=== PATIENT | female | born 1965 | race Caucasian/White ===

== ENCOUNTER 2016-10-08 16:49 | Emergency (ER) | payer MEDICAID, OTHER ==
[~2016-10-08] VITALS: Ht 162.6 cm; Wt 70.8 kg
[~2016-10-08 16:49] MED LIST: ASPI-496 PO; FAMO-79 PO; NYST1000 PO; ONDA4TAB10 PO
[2016-10-08 16:55] VITALS: BP 152/89
[2016-10-08] MEDS ORDERED: IBUPROFEN 200 MG TABLET ONE (18:46)
[2016-10-08] MEDS ORDERED: IBUPROFEN 200 MG TABLET PO ONE (19:00)
== END 2016-10-08 18:43 | disposition home or self-care (01) ==
LOC: ED 18:37
DX: M77.9 Enthesopathy, unspecified (principal); Z91.013 Allergy to seafood; Z88.7 Allergy status to serum and vaccine; Z91.041 Radiographic dye allergy status
CPT/HCPCS: 29125

== ENCOUNTER 2017-10-21 15:36 | Inpatient (IN) | payer MEDICAID, OTHER ==
[~2017-10-21] VITALS: Ht 162.6 cm; Wt 67.0 kg
[2017-10-21] MEDS ORDERED: SODIUM CHLORIDE 0.9% 1,000ML IVBOLUS ONE (16:00)
[2017-10-21] MEDS ORDERED: SODIUM CHLORIDE FLUSH 10ML SYR IVF ONE (16:00)
[2017-10-21] MEDS ORDERED: THIAMINE 100MG TABLET PO ONE (16:00)
[2017-10-21] MEDS ORDERED: PANTOPRAZOLE 80 MG in SODIUM CHLORIDE 0.9% 50 ML IVPB ONE (16:19)
[2017-10-21] MEDS ORDERED: PANTOPRAZOLE 80 MG in SODIUM CHLORIDE 0.9% 100 ML IV SCH (16:19)
[2017-10-21] MEDS ORDERED: ASPI-650 PO (16:24)
[2017-10-21] MEDS ORDERED: NAPR220C2 PO (16:24)
[2017-10-21 16:25] LABS: BASOPHILS # (AUTO) 0.09 x10^3/uL (0-0.1); BASOPHILS % (AUTO) 1 % (0-1); EOSINOPHILS # (AUTO) 0.04 x10^3/uL (0-0.4); EOSINOPHILS % (AUTO) 0 % (1-7); LYMPHOCYTES # (AUTO) 2.07 x10^3/uL (1-3.4); LYMPHOCYTES % (AUTO) 20 % (22-44); MD NO; MEAN CORPUSCULAR HEMOGLOBIN 35.2 pg (27.0-34.8); MEAN CORPUSCULAR HGB CONC 34.5 g/dL (32.4-35.8); MEAN CORPUSCULAR VOLUME 102.1 fL (80-100); MEAN PLATELET VOLUME 7.2 fL (7.4-10.4); MONOCYTES # (AUTO) 0.56 x10^3/uL (0.2-0.8); MONOCYTES % (AUTO) 5 % (2-9); NEUTROPHILS # (AUTO) 7.67 x10^3/uL (1.8-6.8); NEUTROPHILS % (AUTO) 74 % (42-75); PLATELET COUNT 369 x10^3/uL (130-400); RED BLOOD COUNT 4.35 x10^6/uL (3.82-5.3); RED CELL DISTRIBUTION WIDTH 12.1 % (9.6-15.2)
[2017-10-21] MEDS ORDERED: THIAMINE 100MG TABLET ONE (16:26)
[2017-10-21] MEDS ORDERED: LORazepam 2 MG/ML, 1ML ONE (16:28)
[2017-10-21] MEDS: LORazepam 2 MG/ML, 1ML IVPush PRN ×2 (16:32→19:15)
[2017-10-21 16:35] LABS: ALANINE AMINOTRANSFERASE 66 U/L (12-78); ALBUMIN 3.6 g/dL (3.4-5.0); ANION GAP 7 mmol/L (5-15); CALCIUM 8.5 mg/dL (8.5-10.1); CHLORIDE 104 mmol/L (98-107); CREATININE 0.53 mg/dL (0.55-1.02)
[2017-10-21 16:37] LABS: ALKALINE PHOSPHATASE 117 U/L (45-117); BILIRUBIN,TOTAL 0.4 mg/dL (0.2-1.0); TOTAL PROTEIN 8.3 g/dL (6.4-8.2)
[2017-10-21 16:51] LABS: INTERNATIONAL NORMALIZED RATIO 0.99 (0.93-1.1); PROTHROMBIN TIME 10.2 Seconds (9.6-11.5)
[2017-10-21 16:59] LABS: TROPONIN I < 0.015 ng/mL (0.000-0.045)
[2017-10-21] MEDS ORDERED: GABAPENTIN 300 MG CAPSULE PO PRN (18:00)
[2017-10-21] MEDS ORDERED: LORazepam 1MG TABLET PO PRN ×3 (18:00)
[2017-10-21] MEDS: LIDODERM 5% PATCH TD SCH ×2 (18:00→22:51)
[2017-10-21] MEDS: NICOTINE 7 MG/24 HR PATCH.TD24 TD SCH (18:00)
[2017-10-21] MEDS ORDERED: ONDANSETRON 2MG/ML, 2ML IV PRN (18:00)
[2017-10-21] MEDS ORDERED: ALUMINUM/MAG/SIMETHICONE 30 ML UDC PO PRN (18:00)
[2017-10-21] MEDS ORDERED: LORazepam 2 MG/ML, 1ML IV PRN ×4 (18:00)
[2017-10-21] MEDS ORDERED: ACETAMINOPHEN 325 MG TABLET PO PRN (18:00)
[2017-10-21] MEDS ORDERED: DOCUSATE 100 MG CAPSULE PO PRN (18:00)
[2017-10-21 18:36] LABS: FOLATE LEVEL 8.4 ng/mL (3.1-17.5); THYROID STIMULATING HORMONE 3.31 mIU/L (0.358-3.740)
[2017-10-21 19:03] VITALS: BP 154/89
[2017-10-21] MEDS: PANTOPRAZOLE 80 MG in SODIUM CHLORIDE 0.9% 100 ML IV SCH (19:16)
[2017-10-21 19:37] VITALS: BP 144/83
[2017-10-21] MEDS: CHLORDIAZEPOXIDE 10 MG CAPSULE PO SCH ×2 (20:24→22:46)
[2017-10-21] MEDS: POTASSIUM CHLORIDE 20 MEQ, MAGNESIUM SULFATE 1 GM, FOLIC ACID 1 MG, THIAMINE 100 MG, MV... IV SCH (21:20)
[2017-10-21] MEDS: SODIUM CHLORIDE 0.9% 1,000 ML IV SCH (21:21)
[2017-10-21 21:25] LABS: MICROSCOPIC NOT IND
[2017-10-21 21:32] LABS: CULTURE INDICATED? NO
[2017-10-21 21:47] LABS: AMPHETAMINE SCREEN, URINE Negative (Negative); BARBITURATE SCREEN, URINE Negative (Negative); BENZODIAZEPINE SCREEN, URINE Negative (Negative); CANNABINOID SCREEN, URINE Positive (Negative); COCAINE SCREEN, URINE Negative (Negative); METHADONE SCREEN, URINE Negative (Negative); OPIATE SCREEN, URINE Negative (Negative)
[2017-10-22 00:13] VITALS: BP 143/84
[2017-10-22] MEDS: PANTOPRAZOLE 80 MG in SODIUM CHLORIDE 0.9% 100 ML IV SCH ×2 (03:41→17:08)
[2017-10-22] MEDS: CHLORDIAZEPOXIDE 10 MG CAPSULE PO SCH ×2 (06:28→12:31)
[2017-10-22 06:30] LABS: BASOPHILS # (AUTO) 0.07 x10^3/uL (0-0.1); BASOPHILS % (AUTO) 1 % (0-1); EOSINOPHILS # (AUTO) 0.14 x10^3/uL (0-0.4); EOSINOPHILS % (AUTO) 2 % (1-7); LYMPHOCYTES # (AUTO) 1.87 x10^3/uL (1-3.4); LYMPHOCYTES % (AUTO) 27 % (22-44); MD NO; MEAN CORPUSCULAR HGB CONC 34.7 g/dL (32.4-35.8); MEAN CORPUSCULAR VOLUME 100.6 fL (80-100); MEAN PLATELET VOLUME 7.3 fL (7.4-10.4); MONOCYTES # (AUTO) 0.49 x10^3/uL (0.2-0.8); MONOCYTES % (AUTO) 7 % (2-9); NEUTROPHILS % (AUTO) 63 % (42-75); PLATELET COUNT 328 x10^3/uL (130-400); RED CELL DISTRIBUTION WIDTH 12.3 % (9.6-15.2)
[2017-10-22 06:38] LABS: ALBUMIN 2.9 g/dL (3.4-5.0); ANION GAP 6 mmol/L (5-15); CALCIUM 8.1 mg/dL (8.5-10.1); CHLORIDE 107 mmol/L (98-107)
[2017-10-22 06:41] LABS: ALANINE AMINOTRANSFERASE 52 U/L (12-78); ALKALINE PHOSPHATASE 103 U/L (45-117); BILIRUBIN,TOTAL 1.2 mg/dL (0.2-1.0); CREATININE 0.46 mg/dL (0.55-1.02); TOTAL PROTEIN 6.9 g/dL (6.4-8.2)
[2017-10-22 07:00] VITALS: BP 152/84
[2017-10-22] MEDS ORDERED: LABETALOL 5MG/ML, 20ML IVPush PRN (11:00)
[2017-10-22] MEDS: SODIUM CHLORIDE 0.9% 1,000 ML IV SCH (12:21)
[2017-10-22] MEDS: LORazepam 0.5MG TABLET PO PRN ×2 (12:31→17:08)
[2017-10-22] MEDS: LACTULOSE 20 GM/30 ML UDC PO SCH ×2 (12:31→20:48)
[2017-10-22 15:01] VITALS: BP 115/53
[2017-10-22] MEDS: NICOTINE 7 MG/24 HR PATCH.TD24 TD SCH (17:09)
[2017-10-22 18:51] VITALS: BP 135/88
[2017-10-22] MEDS: POTASSIUM CHLORIDE 20 MEQ, MAGNESIUM SULFATE 1 GM, FOLIC ACID 1 MG, THIAMINE 100 MG, MV... IV SCH (20:48)
[2017-10-23 02:00] VITALS: BP 134/87
[2017-10-23] MEDS: PANTOPRAZOLE 80 MG in SODIUM CHLORIDE 0.9% 100 ML IV SCH (03:25)
[2017-10-23 06:23] LABS: BASOPHILS # (AUTO) 0.05 x10^3/uL (0-0.1); BASOPHILS % (AUTO) 1 % (0-1); EOSINOPHILS # (AUTO) 0.16 x10^3/uL (0-0.4); EOSINOPHILS % (AUTO) 3 % (1-7); LYMPHOCYTES # (AUTO) 1.83 x10^3/uL (1-3.4); LYMPHOCYTES % (AUTO) 29 % (22-44); MD NO; MEAN CORPUSCULAR HEMOGLOBIN 35.1 pg (27.0-34.8); MEAN CORPUSCULAR HGB CONC 34.5 g/dL (32.4-35.8); MEAN CORPUSCULAR VOLUME 101.7 fL (80-100); MEAN PLATELET VOLUME 7.4 fL (7.4-10.4); MONOCYTES # (AUTO) 0.45 x10^3/uL (0.2-0.8); MONOCYTES % (AUTO) 7 % (2-9); NEUTROPHILS # (AUTO) 3.85 x10^3/uL (1.8-6.8); NEUTROPHILS % (AUTO) 61 % (42-75); PLATELET COUNT 334 x10^3/uL (130-400); RED BLOOD COUNT 4.06 x10^6/uL (3.82-5.3); RED CELL DISTRIBUTION WIDTH 12.2 % (9.6-15.2)
[2017-10-23 06:33] LABS: ALANINE AMINOTRANSFERASE 68 U/L (12-78); ALBUMIN 2.9 g/dL (3.4-5.0); ANION GAP 6 mmol/L (5-15); CHLORIDE 109 mmol/L (98-107); CREATININE 0.58 mg/dL (0.55-1.02)
[2017-10-23 06:36] LABS: ALKALINE PHOSPHATASE 100 U/L (45-117); BILIRUBIN,TOTAL 0.8 mg/dL (0.2-1.0); TOTAL PROTEIN 6.9 g/dL (6.4-8.2)
[2017-10-23] MEDS: LACTULOSE 20 GM/30 ML UDC PO SCH (07:46)
[2017-10-23 08:01] VITALS: BP 136/84
[2017-10-23 09:29] LABS: OCCULT BLOOD NEGATIVE (NEGATIVE)
[2017-10-23] MEDS: LIDODERM 5% PATCH TD SCH (11:58)
== END 2017-10-23 12:51 | disposition home or self-care (01) | DRG 896 ==
LOC: ED 17:05 → EDIP 17:11 → 4WST 18:58
PROVIDERS: ADMIT Hospitalist; ATTEND Hospitalist
DX: F10.239 Alcohol dependence with withdrawal, unspecified (principal); K29.21 Alcoholic gastritis with bleeding; R29.6 Repeated falls; S09.90XA Unspecified injury of head, initial encounter; W18.30XA Fall on same level, unspecified, initial encounter; B18.2 Chronic viral hepatitis C; F12.10 Cannabis abuse, uncomplicated; Y93.01 Activity, walking, marching and hiking; M85.80 Other specified disorders of bone density and structure, unspecified site; F17.210 Nicotine dependence, cigarettes, uncomplicated; D75.89 Other specified diseases of blood and blood-forming organs; D72.829 Elevated white blood cell count, unspecified; E87.6 Hypokalemia; Y90.9 Presence of alcohol in blood, level not specified; M54.30 Sciatica, unspecified side; E86.0 Dehydration; I10 Essential (primary) hypertension; Y92.89 Other specified places as the place of occurrence of the external cause; Y99.2 Volunteer activity; Z88.7 Allergy status to serum and vaccine; Z91.041 Radiographic dye allergy status; Z91.013 Allergy to seafood; Z79.82 Long term (current) use of aspirin
CPT/HCPCS: 36415; 72220; 73020; 99285; J7042; 70450; 70486; 72125; 76700; 80053; 80307; 81003; 82140; 82272; 82607; 82746; 83690; 83735; 84100; 84443; 84484; 85014; 85018; 85025; 85610; 93005; 96365; J3411; J3475; J3480; C9113; J2060; J7030

== ENCOUNTER 2018-09-24 12:25 | Emergency (ER) | payer MEDICAID ==
[~2018-09-24] VITALS: Ht 162.6 cm; Wt 64.4 kg
[2018-09-24 15:44] VITALS: BP 120/84
== END 2018-09-24 16:31 | disposition home or self-care (01) ==
LOC: ED 13:59
DX: K29.20 Alcoholic gastritis without bleeding (principal); F10.10 Alcohol abuse, uncomplicated; N10 Acute pyelonephritis; F17.200 Nicotine dependence, unspecified, uncomplicated; R05 Cough
CPT/HCPCS: 36415; 71045; 74177; 80053; 80307; 81001; 83690; 85025; 85610; 86850; 86900; 87077; 87086; 93005; 96361; 96365; 96375; 99284; C9113; J0696; J2405; J7030; Q9967; 87186

== ENCOUNTER 2019-03-12 06:59 | Inpatient (IN) | payer MEDICAID, OTHER ==
[~2019-03-12] VITALS: Ht 162.6 cm; Wt 68.7 kg
[~2019-03-12 06:59] MED LIST changes: +ASPI-650 PO; +NAPR220C2 PO
--- NOTE | 2019-03-12 07:29 | NUR ---
UM NURSE: PT AMBULATORY TO ROOM FROM LOBBY
[2019-03-12 07:55] LABS: MEAN CORPUSCULAR HEMOGLOBIN 33.8 pg (27.0-34.8); MEAN CORPUSCULAR HGB CONC 33.5 g/dL (32.4-35.8); MEAN CORPUSCULAR VOLUME 100.9 fL (80-100); MEAN PLATELET VOLUME 7.6 fL (7.4-10.4); PLATELET COUNT 309 x10^3/uL (130-400); RED BLOOD COUNT 4.23 x10^6/uL (3.82-5.3)
[2019-03-12] MEDS ORDERED: SODIUM CHLORIDE 0.9% 1,000ML IVBOLUS ONE (08:00)
[2019-03-12] MEDS ORDERED: KETOROLAC 30 MG/1 ML IVPush ONE (08:00)
[2019-03-12] MEDS ORDERED: ACETAMINOPHEN 500 MG TABLET PO ONE (08:00)
[2019-03-12] MEDS ORDERED: SODIUM CHLORIDE FLUSH 10ML SYR IVF ONE (08:00)
[2019-03-12] MEDS ORDERED: KETOROLAC 30 MG/1 ML ONE (08:03)
[2019-03-12] MEDS ORDERED: ACETAMINOPHEN 500 MG TABLET ONE (08:03)
[2019-03-12 08:09] LABS: ALANINE AMINOTRANSFERASE 25 U/L (12-78); ALBUMIN 2.7 g/dL (3.4-5.0); ANION GAP 12 mmol/L (5-15); CALCIUM 8.4 mg/dL (8.5-10.1); CHLORIDE 102 mmol/L (98-107); CREATININE 0.67 mg/dL (0.55-1.02)
[2019-03-12 08:11] LABS: ALKALINE PHOSPHATASE 198 U/L (45-117); BILIRUBIN,TOTAL 0.8 mg/dL (0.2-1.0); TOTAL PROTEIN 7.3 g/dL (6.4-8.2)
[2019-03-12 08:32] LABS: MD YES
[2019-03-12 08:34] LABS: BAND#(MANUAL) 4.03 x10^3/uL; BANDS%(MANUAL) 18 % (0-7); LYMPH#(MANUAL) 0.45 x10^3/uL (1-3.4); LYMPHS% (MANUAL) 2 % (22-44); SEG#(MANUAL) 17.92 x10^3/uL (1.8-6.8); SEGS% (MANUAL) 80 % (42-75); TOXIC GRAN 1+
[2019-03-12 08:35] LABS: <PLATELET ESTIMATE> ADEQUATE; <PLT MORPHOLOGY> NORMAL PLT MORPH; PMNS WITH VACUOLES 1+
[2019-03-12] MEDS ORDERED: CHLORDIAZEPOXIDE 10 MG CAPSULE PO PRN (09:00)
[2019-03-12] MEDS ORDERED: POTASSIUM CHLORIDE 40 MEQ in SODIUM CHLORIDE 0.9% 500 ML IV ONE ×2 (09:00→09:30)
[2019-03-12] MEDS ORDERED: AZITHROMYCIN 500 MG in SODIUM CHLORIDE 0.9% 250 ML IV ONE ×2 (09:00→13:30)
[2019-03-12] MEDS ORDERED: CEFTRIAXONE PMX 1GM/50ML 50 ML IV ONE (09:00)
[2019-03-12] MEDS ORDERED: LABETALOL 5MG/ML, 20ML IVPush PRN (09:30)
[2019-03-12] MEDS ORDERED: PROMETHAZINE 25 MG/ML, 1ML IM PRN (09:30)
[2019-03-12] MEDS ORDERED: LORazepam 1MG TABLET PO PRN ×2 (09:30)
[2019-03-12] MEDS ORDERED: CEFTRIAXONE PMX 1GM/50ML 50 ML IV SCH (09:30)
[2019-03-12] MEDS ORDERED: hydrALAzine 20 MG/ML, 1ML IVPush PRN (09:30)
[2019-03-12] MEDS ORDERED: ONDANSETRON 2MG/ML, 2ML IVPush PRN (09:30)
[2019-03-12] MEDS ORDERED: LORazepam 0.5MG TABLET PO PRN (09:30)
[2019-03-12] MEDS: NICOTINE 14MG/24 HR PATCH.TD24 TD SCH (09:30)
[2019-03-12] MEDS ORDERED: morphine SULFATE 10 MG/ML, 1ML IVPush PRN (09:30)
[2019-03-12] MEDS ORDERED: THIAMINE 100MG TABLET PO SCH (09:30)
[2019-03-12] MEDS ORDERED: HYDROcodone/APAP 5/325 TABLET PO PRN (09:30)
[2019-03-12] MEDS ORDERED: DOXYCYCLINE 100MG TABLET PO SCH (09:30)
[2019-03-12] MEDS ORDERED: LORazepam 2 MG/ML, 1ML IV PRN ×3 (09:30)
[2019-03-12] MEDS ORDERED: CEFTRIAXONE PMX 1GM/50ML 50 ML ONE (09:31)
[2019-03-12 09:39] LABS: MICROSCOPIC INDICATED
[2019-03-12 09:53] LABS: CULTURE INDICATED? YES
[2019-03-12] MEDS: SODIUM CHLORIDE 0.9% 1,000 ML IV SCH ×2 (09:57→18:29)
--- NOTE | 2019-03-12 10:23 | NUR ---
REPORT GIVEN TO HARVEY CHILD
[2019-03-12] MEDS: HEPARIN 5,000 UNITS/ML, 1ML SQ SCH ×2 (11:22→20:48)
[2019-03-12] MEDS: FOLIC ACID 1 MG TABLET PO SCH (11:22)
[2019-03-12] MEDS: MULTIVITAMIN 1 TABLET PO SCH (11:23)
[2019-03-12 11:27] VITALS: BP 101/75
[2019-03-12 11:36] LABS: RAPID INFLUENZA A Negative (Negative); RAPID INFLUENZA B Negative (Negative)
[2019-03-12 12:15] LABS: HCG UR SG 1.005 (1.003-1.030); MICROSCOPIC NOT IND
[2019-03-12 12:18] LABS: CULTURE INDICATED? NO
[2019-03-12] MEDS: SODIUM CHLORIDE 0.9% 500 ML IV SCH ×4 (12:22→15:38)
[2019-03-12 12:27] LABS: AMPHETAMINE SCREEN, URINE Positive (Negative); BARBITURATE SCREEN, URINE Negative (Negative); BENZODIAZEPINE SCREEN, URINE Negative (Negative); CANNABINOID SCREEN, URINE Positive (Negative); COCAINE SCREEN, URINE Negative (Negative); METHADONE SCREEN, URINE Negative (Negative); OPIATE SCREEN, URINE Negative (Negative)
[2019-03-12] MEDS: LORazepam 2 MG/ML, 1ML IV PRN (13:07)
[2019-03-12] MEDS ORDERED: AZITHROMYCIN 500 MG in SODIUM CHLORIDE 0.9% 250 ML IV SCH (14:00)
[2019-03-12 14:13] VITALS: BP 99/60
[2019-03-12] MEDS: POTASSIUM CHLORIDE 20 MEQ TAB.ER.PRT PO SCH (17:10)
[2019-03-12 19:06] VITALS: BP 91/62
[2019-03-12 19:40] VITALS: BP 101/72
[2019-03-12 19:52] LABS: ANION GAP 8 mmol/L (5-15); CALCIUM 7.5 mg/dL (8.5-10.1); CHLORIDE 113 mmol/L (98-107); CREATININE 0.65 mg/dL (0.55-1.02)
[2019-03-13 01:15] VITALS: BP 99/64
[2019-03-13] MEDS: SODIUM CHLORIDE 0.9% 1,000 ML IV SCH ×2 (05:35→20:26)
[2019-03-13] MEDS: HEPARIN 5,000 UNITS/ML, 1ML SQ SCH ×3 (05:35→20:04)
[2019-03-13 05:53] LABS: CHLORIDE 114 mmol/L (98-107)
[2019-03-13 05:54] LABS: MEAN CORPUSCULAR HGB CONC 33.5 g/dL (32.4-35.8); MEAN CORPUSCULAR VOLUME 101.4 fL (80-100); MEAN PLATELET VOLUME 8.1 fL (7.4-10.4); PLATELET COUNT 286 x10^3/uL (130-400); RED BLOOD COUNT 3.52 x10^6/uL (3.82-5.3); RED CELL DISTRIBUTION WIDTH 12.7 % (9.6-15.2)
[2019-03-13 06:13] LABS: ALANINE AMINOTRANSFERASE 22 U/L (12-78); ALBUMIN 1.9 g/dL (3.4-5.0); ALKALINE PHOSPHATASE 165 U/L (45-117); ANION GAP 9 mmol/L (5-15); BILIRUBIN,TOTAL 0.3 mg/dL (0.2-1.0); CALCIUM 7.6 mg/dL (8.5-10.1); TOTAL PROTEIN 5.8 g/dL (6.4-8.2)
[2019-03-13 06:46] VITALS: BP 96/63
[2019-03-13 06:49] LABS: MD YES
[2019-03-13 06:54] LABS: <PLATELET ESTIMATE> ADEQUATE; <PLT MORPHOLOGY> NORMAL PLT MORPH; BAND#(MANUAL) 1.46 x10^3/uL; BANDS%(MANUAL) 8 % (0-7); BASOS#(MANUAL) 0.18 x10^3/uL (0-0.1); BASOS% (MANUAL) 1 % (0-1); LYMPH#(MANUAL) 4.37 x10^3/uL (1-3.4); LYMPHS% (MANUAL) 24 % (22-44); MONOS#(MANUAL) 0.55 x10^3/uL (0.3-2.7); MONOS% (MANUAL) 3 % (2-9); SEG#(MANUAL) 11.65 x10^3/uL (1.8-6.8); SEGS% (MANUAL) 64 % (42-75)
[2019-03-13 06:55] LABS: POLYCHROMASIA 1+
[2019-03-13] MEDS ORDERED: CEFTRIAXONE PMX 1GM/50ML 50 ML IV SCH (09:00)
[2019-03-13] MEDS ORDERED: VANCOMYCIN PER PHARMACY MC PRN (09:30)
[2019-03-13] MEDS: MULTIVITAMIN 1 TABLET PO SCH (09:44)
[2019-03-13] MEDS: POTASSIUM CHLORIDE 20 MEQ TAB.ER.PRT PO SCH ×2 (09:44→16:08)
[2019-03-13] MEDS: NICOTINE 14MG/24 HR PATCH.TD24 TD SCH (09:45)
[2019-03-13] MEDS: FOLIC ACID 1 MG TABLET PO SCH (09:45)
[2019-03-13] MEDS ORDERED: THIAMINE 100 MG in SODIUM CHLORIDE 0.9% 50 ML IV SCH (10:00)
[2019-03-13] MEDS ORDERED: PHARMACOKINETIC MONITORING MC PRN (10:30)
[2019-03-13] MEDS ORDERED: PHARMACOKINETIC CONSULTATION MC ONE (10:30)
[2019-03-13] MEDS: VANCOMYCIN 1,400 MG in SODIUM CHLORIDE 0.9% 250 ML IV SCH ×2 (10:50→22:49)
[2019-03-13 11:49] VITALS: BP 111/68
[2019-03-13] MEDS ORDERED: AZITHROMYCIN 500 MG in SODIUM CHLORIDE 0.9% 250 ML IV SCH (12:00)
[2019-03-13] MEDS: GUAIFENESIN 200 MG TABLET PO SCH ×3 (12:26→20:03)
[2019-03-13] MEDS ORDERED: POTASSIUM PHOSPHATE 44 MEQ in SODIUM CHLORIDE 0.9% 500 ML IV ONE (15:00)
[2019-03-13 19:26] VITALS: BP 146/92
[2019-03-13] MEDS: ACETAMINOPHEN 325 MG TABLET PO PRN (20:03)
[2019-03-13] MEDS: LORazepam 2 MG/ML, 1ML IV PRN (20:04)
[2019-03-14 00:48] VITALS: BP 127/81
[2019-03-14] MEDS: SODIUM CHLORIDE 0.9% 1,000 ML IV SCH ×2 (05:33→21:14)
[2019-03-14] MEDS: HEPARIN 5,000 UNITS/ML, 1ML SQ SCH ×3 (05:33→21:13)
[2019-03-14] MEDS: GUAIFENESIN 200 MG TABLET PO SCH ×4 (05:33→20:56)
[2019-03-14 06:59] VITALS: BP 129/84
[2019-03-14] MEDS ORDERED: THIAMINE 100MG TABLET JT SCH (09:00)
[2019-03-14 09:30] LABS: BASOPHILS # (AUTO) 0.05 x10^3/uL (0-0.1); BASOPHILS % (AUTO) 1 % (0-1); EOSINOPHILS % (AUTO) 1 % (1-7); LYMPHOCYTES # (AUTO) 1.79 x10^3/uL (1-3.4); LYMPHOCYTES % (AUTO) 21 % (22-44); MD NO; MEAN CORPUSCULAR HGB CONC 33.8 g/dL (32.4-35.8); MEAN CORPUSCULAR VOLUME 100.4 fL (80-100); MEAN PLATELET VOLUME 7.7 fL (7.4-10.4); MONOCYTES # (AUTO) 0.45 x10^3/uL (0.2-0.8); MONOCYTES % (AUTO) 5 % (2-9); NEUTROPHILS # (AUTO) 5.95 x10^3/uL (1.8-6.8); NEUTROPHILS % (AUTO) 71 % (42-75); PLATELET COUNT 359 x10^3/uL (130-400); RED BLOOD COUNT 3.95 x10^6/uL (3.82-5.3); RED CELL DISTRIBUTION WIDTH 12.7 % (9.6-15.2)
[2019-03-14 09:37] LABS: ALBUMIN 2.2 g/dL (3.4-5.0); ANION GAP 5 mmol/L (5-15); CALCIUM 8.1 mg/dL (8.5-10.1); CHLORIDE 110 mmol/L (98-107)
[2019-03-14 09:40] LABS: ALANINE AMINOTRANSFERASE 39 U/L (12-78); ALKALINE PHOSPHATASE 166 U/L (45-117); BILIRUBIN,TOTAL 0.4 mg/dL (0.2-1.0); CREATININE 0.51 mg/dL (0.55-1.02); TOTAL PROTEIN 6.2 g/dL (6.4-8.2)
[2019-03-14] MEDS: VANCOMYCIN 1,400 MG in SODIUM CHLORIDE 0.9% 250 ML IV SCH ×2 (10:21→22:51)
[2019-03-14] MEDS: POTASSIUM CHLORIDE 20 MEQ TAB.ER.PRT PO SCH ×2 (10:22→17:04)
[2019-03-14] MEDS: NICOTINE 14MG/24 HR PATCH.TD24 TD SCH (10:22)
[2019-03-14] MEDS: FOLIC ACID 1 MG TABLET PO SCH (10:22)
[2019-03-14] MEDS: MULTIVITAMIN 1 TABLET PO SCH (10:22)
[2019-03-14 12:59] VITALS: BP 137/88
[2019-03-14] MEDS: LORazepam 1MG TABLET PO PRN ×2 (13:26→20:56)
[2019-03-14 19:20] VITALS: BP 147/85
[2019-03-14] MEDS ORDERED: ATORVASTATIN 40 MG TABLET PO SCH (21:00)
[2019-03-14] MEDS ORDERED: CARVEDILOL 25 MG TABLET PO SCH (21:00)
[2019-03-14] MEDS ORDERED: OMEPRAZOLE 20 MG CAPSULE.DR PO SCH (21:00)
[2019-03-15 02:12] VITALS: BP 137/94
[2019-03-15 05:43] LABS: BASOPHILS # (AUTO) 0.05 x10^3/uL (0-0.1); BASOPHILS % (AUTO) 1 % (0-1); EOSINOPHILS # (AUTO) 0.15 x10^3/uL (0-0.4); EOSINOPHILS % (AUTO) 2 % (1-7); LYMPHOCYTES # (AUTO) 2.33 x10^3/uL (1-3.4); LYMPHOCYTES % (AUTO) 30 % (22-44); MD NO; MEAN CORPUSCULAR HEMOGLOBIN 33.5 pg (27.0-34.8); MEAN CORPUSCULAR HGB CONC 33.6 g/dL (32.4-35.8); MEAN CORPUSCULAR VOLUME 99.7 fL (80-100); MONOCYTES # (AUTO) 0.82 x10^3/uL (0.2-0.8); MONOCYTES % (AUTO) 11 % (2-9); NEUTROPHILS # (AUTO) 4.33 x10^3/uL (1.8-6.8); NEUTROPHILS % (AUTO) 56 % (42-75); PLATELET COUNT 365 x10^3/uL (130-400); RED BLOOD COUNT 4.01 x10^6/uL (3.82-5.3); RED CELL DISTRIBUTION WIDTH 12.3 % (9.6-15.2)
[2019-03-15 05:48] LABS: ALBUMIN 2.2 g/dL (3.4-5.0); ANION GAP 6 mmol/L (5-15); CALCIUM 8.8 mg/dL (8.5-10.1); CHLORIDE 106 mmol/L (98-107)
[2019-03-15 05:54] LABS: ALANINE AMINOTRANSFERASE 52 U/L (12-78); ALKALINE PHOSPHATASE 162 U/L (45-117); BILIRUBIN,TOTAL 0.5 mg/dL (0.2-1.0); CREATININE 0.48 mg/dL (0.55-1.02); TOTAL PROTEIN 6.6 g/dL (6.4-8.2)
[2019-03-15] MEDS: GUAIFENESIN 200 MG TABLET PO SCH ×2 (06:20→12:30)
[2019-03-15] MEDS: SODIUM CHLORIDE 0.9% 1,000 ML IV SCH (06:21)
[2019-03-15] MEDS: HEPARIN 5,000 UNITS/ML, 1ML SQ SCH ×2 (06:21→12:29)
[2019-03-15 07:38] VITALS: BP 136/97
[2019-03-15] MEDS ORDERED: SEVELAMER CARBONATE 800MG TAB PO SCH (08:00)
[2019-03-15] MEDS: MULTIVITAMIN 1 TABLET PO SCH (08:57)
[2019-03-15] MEDS: FOLIC ACID 1 MG TABLET PO SCH (08:57)
[2019-03-15] MEDS ORDERED: THIAMINE 100MG TABLET PO SCH (09:00)
[2019-03-15] MEDS: NICOTINE 14MG/24 HR PATCH.TD24 TD SCH (09:11)
[2019-03-15] MEDS ORDERED: CEFTRIAXONE PMX 2GM/50ML 50 ML IV SCH (09:30)
[2019-03-15] MEDS: ACETAMINOPHEN 325 MG TABLET PO PRN (12:30)
[2019-03-15 12:35] VITALS: BP 138/96
[2019-03-15] MEDS ORDERED: THIA100T67 PO (14:15)
[2019-03-15] MEDS ORDERED: GUAI200T37 PO (14:15)
[2019-03-15] MEDS ORDERED: LEVO500T47 PO (14:15)
[2019-03-15] MEDS ORDERED: FOLI-17 PO (14:15)
== END 2019-03-15 15:19 | disposition home or self-care (01) | DRG 871 ==
LOC: ED 08:46 → EDIP 10:25 → 4WST 10:40 → DCLOUNGE 03-15 15:06
PROVIDERS: ADMIT Internal Medicine; ATTEND Internal Medicine
DX: A41.9 Sepsis, unspecified organism (principal); J15.4 Pneumonia due to other streptococci; E87.1 Hypo-osmolality and hyponatremia; F10.239 Alcohol dependence with withdrawal, unspecified; R65.20 Severe sepsis without septic shock; E86.1 Hypovolemia; E87.6 Hypokalemia; F12.90 Cannabis use, unspecified, uncomplicated; I10 Essential (primary) hypertension; R44.1 Visual hallucinations; K29.70 Gastritis, unspecified, without bleeding; R73.9 Hyperglycemia, unspecified; F19.10 Other psychoactive substance abuse, uncomplicated; Z71.6 Tobacco abuse counseling; Z72.0 Tobacco use; Z86.19 Personal history of other infectious and parasitic diseases; Z71.41 Alcohol abuse counseling and surveillance of alcoholic; Z88.7 Allergy status to serum and vaccine; Z91.041 Radiographic dye allergy status; Z91.013 Allergy to seafood
CPT/HCPCS: 36415; 71045; 74176; 80048; 80053; 80202; 80307; 81001; 81003; 81025; 82150; 83036; 83605; 83690; 83735; 84100; 84145; 84443; 85025; 87040; 87070; 87077; 87086; 87181; 87205; 87400; 93005; 93306; 96361; 96374; 96375; G0378; J0456; J0696; J1644; J1885; J2405; J3370; J3411; J3480; J2060; J7030; J7040; J7050

== ENCOUNTER 2019-06-02 13:41 | Emergency (ER) | payer MEDICAID ==
[~2019-06-02] VITALS: Ht 162.6 cm; Wt 68.2 kg
[~2019-06-02 13:41] MED LIST changes: +FOLI-17 PO; +GUAI200T37 PO; +LEVO500T47 PO; +THIA100T67 PO
[2019-06-02 13:52] VITALS: BP 150/121
--- NOTE | 2019-06-02 14:13 | NUR ---
PT BIB [facility] FOR PAIN IN BACK THAT RADIATES TO FRONT WELL FLANK PAIN. PT CHANGED INTO GOWN, UNABLE TO SIT, WALKING AND MOVING AROUND, RESTLESS PACING, CALL LIGHT WITHIN REACH, NAD, EVEN AND UNLABORED RESPIRATIONS. WCTM.
--- NOTE | 2019-06-02 14:14 | NUR ---
CARLA STEWART AT BEDSIDE PERFORMING ASSESSMENT AND DISCUSSING PLAN OF CARE
[2019-06-02] MEDS ORDERED: AMPH30CA6 PO (14:20)
[2019-06-02] MEDS ORDERED: DIAZEPAM 5 MG/ML, 2ML IVPush ONE (14:30)
[2019-06-02] MEDS ORDERED: SODIUM CHLORIDE FLUSH 10ML SYR IVF ONE (14:30)
--- NOTE | 2019-06-02 14:46 | NUR ---
Pt found to have departed ED, she did not inform staff that she did not wish for further evaluation, attempting to call pt at this time to request that she return to have IV removed.
--- NOTE | 2019-06-02 14:53 | NUR ---
Pt did not answer the phone, unable to leave message, [facility] called & notified of pt departing ED w/ PIV in place.
== END 2019-06-02 14:56 | disposition left against medical advice (07) ==
LOC: ED 14:03
DX: R10.13 Epigastric pain (principal); M54.5 Low back pain; F17.200 Nicotine dependence, unspecified, uncomplicated
CPT/HCPCS: 99283

== ENCOUNTER 2019-10-18 12:47 | Emergency (ER) | payer MEDICAID ==
[~2019-10-18] VITALS: Ht 162.6 cm; Wt 69.7 kg
[~2019-10-18 12:47] MED LIST changes: +AMPH30CA6 PO
[2019-10-18 13:18] VITALS: BP 137/89
--- NOTE | 2019-10-18 13:22 | NUR ---
THIS IS A 54 YO F WHO BROUGHT HERSELF IN TO [facility]. PT STATES THAT HE LAST DRINK WAS 1 SHOT OF VODKA AT APPROX 1230. PT REPORTS VISUAL HALLUCINATIONS. DENIES AUDITORY. DENIES SI/HI. PT REPORTS TREMORS. PT RESTING ON [employer] W/ CALL LIGHT IN REACH, SIDE RAILS UPX2. FERNANDA MCCLURE. AWAITING ED EVAL.
[2019-10-18] MEDS ORDERED: SODIUM CHLORIDE 0.9% 1,000ML IVBOLUS ONE (13:30)
[2019-10-18] MEDS ORDERED: ONDANSETRON 2MG/ML, 2ML IVPush ONE (13:30)
[2019-10-18] MEDS ORDERED: THIAMINE 100 MG in SODIUM CHLORIDE 0.9% 50 ML IVPB ONE (13:30)
--- NOTE | 2019-10-18 13:52 | NUR ---
PT REFUSING LABS. REPORTS IF SHE IS NOT GOING TO BE ADMITTED THEN SHE WANTS TO LEAVE. PT SIGNED AMA SHEET AND GIVEN [facility] RESOURCE SHEET. AMBULATORY W/ A STEADY GAIT, NADN.
--- NOTE | 2019-10-18 13:53 | NUR ---
PT OFFERED [facility]I VOUCHER TO [facility] TO [facility] AND REFUSED.
== END 2019-10-18 13:55 | disposition left against medical advice (07) ==
LOC: ED 13:53
DX: F10.220 Alcohol dependence with intoxication, uncomplicated (principal); R11.0 Nausea; R10.10 Upper abdominal pain, unspecified; Y90.0 Blood alcohol level of less than 20 mg/100 ml
CPT/HCPCS: 99281